=== PATIENT | female | born 1935 | race Two or more races ===

== ENCOUNTER 2024-10-15 13:42 | Outpatient (OUT) | payer MEDICARE, SELFPAY ==
[2024-10-15 14:13] LABS: Basophils Absolute Auto 0.1 10^3/uL (0.0-0.1); Eosinophils Absolute Auto 0.3 10^3/uL (0.0-0.7); Hemoglobin 14.3 g/dL (12.0-16.0); Immature Granulocytes Abs Auto 0.01 10^3/uL (0.00-0.03); Immature Granulocytes Pct Auto 0.1 % (0.0-0.5); Lymphocytes Absolute Auto 1.7 10^3/uL (1.2-3.8); Lymphocytes Percent Auto 24.2 % (20.5-60.0); Mean Corpuscular HGB Conc 34.9 g/dL (29.9-35.2); Mean Corpuscular Hemoglobin 29.9 pg (26.7-34.0); Mean Corpuscular Volume 85.8 fL (81.0-99.0); Mean Platelet Volume 11.7 fL (9.5-13.5); Monocytes Absolute Auto 0.5 10^3/uL (0.3-0.8); Monocytes Percent Auto 7.3 % (1.7-12.0); Neutrophils Absolute Auto 4.4 10^3/uL (1.4-6.5); Neutrophils Percent Auto 63.4 % (43.0-75.0); Platelet Count 281 10^3/uL (150-450); Red Blood Count 4.78 10^6/uL (4.20-5.40); Red Cell Distribution Width 14.4 % (11.0-15.0)
[2024-10-15 14:59] LABS: Alanine Aminotransferase 14 U/L (14-59); Albumin Globulin Ratio 0.8; Alkaline Phosphatase 95 U/L (46-116); Anion Gap 11.1; Aspartate Amino Transferase 12 U/L (15-37); BUN Creatinine Ratio 17.1; Bilirubin Total 0.9 mg/dL (0.2-1.0); Calcium 8.4 mg/dL (8.5-10.1); Carbon Dioxide 28.6 mmol/L (21.0-32.0); Chloride 107 mmol/L (98-107); Estimated GFR (African America 47 (>=60 mL/min/1.73m^2); Estimated GFR (Non-African Ame 39 (>=60 mL/min/1.73m^2); Globulin 3.7 g/dL; Glucose 98 mg/dL (74-106); Magnesium 1.3 mg/dL (1.8-2.4); Sodium 144 mmol/L (136-145); TSH W/ REFLEX FT4 1.589 uIU/mL (0.358-3.740); Total Protein 6.7 g/dL (6.4-8.2)
[2024-10-15 16:32] LABS: Potassium 2.7 mmol/L (3.5-5.1)
== END 2024-10-15 13:43 | disposition home or self-care (01) ==
LOC: LAB 13:50
PROVIDERS: PCP Student in an Organized Health Care Education/Training Program; Visit Provider Student in an Organized Health Care Education/Training Program
DX: I10 Essential (primary) hypertension (principal); E03.9 Hypothyroidism, unspecified; Z79.899 Other long term (current) drug therapy
CPT/HCPCS: 36415; 80053; 83735; 84443; 85025

== ENCOUNTER 2024-10-15 18:17 | Emergency (ER) | payer MEDICARE, SELFPAY ==
[2024-10-15] VITALS (23 sets, daily range): BP systolic 170–206; BP diastolic 83–107; PULSE 70–93; TEMP 36.6; O2SAT 97–99; BMI 28.8
--- NOTE | 2024-10-15 19:27 | ECG_ITS ---
[facility] Test Date: 2024-10-15 Pat Name: HENRIK PERKINS Department: Room: - Gender: Female [employer]: : [id number] Requested By: [id number] Order Number: [id number] Reading MD: JOSE PENA Measurements Intervals Yoder Rate: 70 P: -[id number] MD: -[id number] QRS: 90 QRSD: 164 T: 59 QT: 460 QTc: 480 Interpretive Statements [id number] Electronic ventricular pacemaker 9120 atypical ECG No previous ECG available for comparison Electronically Signed On 10-15-2024 20:53:10 EST by JOSE PENA
--- NOTE | 2024-10-15 19:31 | ED.GENADUL1 ---
HPI HPI - General Adult General Chief complaint: Recheck/Abnormal Lab/Rx Stated complaint: ABNORMAL LABS Time Seen by Provider: 10/15/24 19:09 Source: patient Mode of arrival: walk-in Limitations: no limitations History of Present Illness HPI narrative: 88-year-old female presents to the emergency department with daughter with complaint of low potassium levels. Patient recently moved here from [place], is getting established with a provider and routine blood work was performed. States she stopped taking potassium on Monday. Daughter states they have been having some trouble getting the prescription filled. She has had chronic diarrhea for which adjustments to her current medications attempting to adjust her current medications. She has had some fleeting, intermittent chest discomfort for a long while. She does have a pacemaker. Denies any fever, chills, nausea, vomiting, dysuria. Quality:?As above Severity:?Mild Timing:?As above Context: Normal setting and activity? Modifying factors:?None Associated symptoms: None Related Data Previous Rx's ?Medication ?Instructions ?Recorded potassium chloride 10 mEq 10 meq PO DAILY #30 tabs 10/15/24 tablet,extended release(part/cryst) Allergies Allergy/AdvReac Type Severity Reaction Status Date / Time rivaroxaban (From Xarelto) AdvReac Unknown Unknown Verified 10/15/24 19:27 Opioid HPI Opioid Management Most Recent Opioid Data: No Data to Display Review of Systems ROS Narrative CONST: Denies fever, chills HENT: Denies congestion, sore throat EYES: Denies eye redness, visual disturbance RESP: Denies cough, shortness of breath CV: + chest pain, palpitations (long standing) GI: + diarrhea. Denies abd pain, nausea, vomiting : Denies dysuria, flank pain MS: Denies back pain, myalgias SKIN: Denies color change, rash NEURO: Denies numbness, weakness PSYCHIATRIC: Denies confusion, agitation PFSH PFSH Social History Little interest or pleasure in doing things: not at all Feeling down, depressed, or hopeless: not at all Exam Narrative Exam Narrative: Vital signs reviewed Nurses notes noted CONST: Nontoxic, well appearing, well nourished, in no distress.? No diaphoresis.?? HENT: normocephalic, atraumatic, moist mucous membrane, no abnormalities of the nose noted, hearing normal EYES: normal appearing conjunctiva, no apparent discharge bilat NECK: normal appearance CV: normal rate, regular rhythm, no murmur RESP: normal effort, speaking in complete sentences. Lung sounds clear and equal bilat.? No wheezes, rales, rhonchi MS: no edema, tenderness SKIN: no pallor NEURO: A&Ox 3, no focal findings PSYCH: normal mood, affect Constitutional Vital Signs, click to edit/add: Last Vital Signs Temp 97.8 F 10/15/24 18:29 Pulse 70 10/15/24 21:10 Resp 13 10/15/24 21:10 BP 174/91 H 10/15/24 19:31 Pulse Ox 98 10/15/24 20:40 Course Vital Signs Vital signs: Vital Signs Temperature 97.8 F 10/15/24 18:29 Pulse Rate 70 10/15/24 18:29 Respiratory Rate 20 10/15/24 18:29 Blood Pressure 170/90 H 10/15/24 18:29 Pulse Oximetry 99 10/15/24 18:29 Temperature 97.8 F 10/15/24 18:29 Pulse Rate 70 10/15/24 21:10 Respiratory Rate 13 10/15/24 21:10 Blood Pressure 174/91 H 10/15/24 19:31 Pulse Oximetry 98 10/15/24 20:40 Medical Decision Making MDM Narrative Medical decision making narrative: This is a pleasant 88-year-old female who presents to the emergency department for evaluation of low potassium level On arrival, afebrile, vital signs are stable Exam, nontoxic, well-appearing patient in no distress. Heart regular rate and rhythm. Lung sounds clear and equal bilaterally. Abdomen soft. Nontender Labs reveal potassium 2.7. BUN and creatinine are little elevated at 25 and 1.44. No leukocytosis, anemia, thrombocytopenia. Favor hypokalemia Hypo-/hyper natremia less likely based on imaging History and Record Review Discussion with independent historian: Daughter Additional records reviewed: None available Additional Tests and Interventions IV Fluids: redistribution/electrolyte imbalance Disposition ? The patient was discharged. Prescriptions sent to pharmacy:[facility] Plan: Patient will be discharged to home.? Condition at time of disposition: stable improved.? Advised to follow up with primary provider. Advised to return for any worsening and/or development of new, concerning signs or symptoms Admission considered: K corrected in the ER PLEASE NOTE: Portions of the medical record may have been produced using electronic senior consumer insights consultant and may contain errors with respect to translation of words which may not have been identified prior to finalization of the chart. Lab Data Lab results reviewed: Yes I reviewed the patient's lab results Labs: Lab Results 10/15/24 Range/Units 19:54 WBC 7.9 (4.0-11.0) 10^3/uL RBC 4.96 (4.20-5.40) 10^6/uL Hgb 14.6 (12.0-16.0) g/dL Hct 43.5 (36.0-48.0) % MCV 87.7 (81.0-99.0) fL MCH 29.4 (26.7-34.0) pg MCHC 33.6 (29.9-35.2) g/dL RDW 14.7 (11.0-15.0) % Plt Count 282 (150-450) 10^3/uL MPV 11.6 (9.5-13.5) fL Neut % (Auto) 65.5 (43.0-75.0) % Lymph % (Auto) 22.0 (20.5-60.0) % [place] % (Auto) 8.4 (1.7-12.0) % Eos % (Auto) 3.0 (0.9-7.0) % Baso % (Auto) 1.0 (0.2-2.0) % Neut # (Auto) 5.2 (1.4-6.5) 10^3/uL Lymph # (Auto) 1.8 (1.2-3.8) 10^3/uL [place] # (Auto) 0.7 (0.3-0.8) 10^3/uL Eos # (Auto) 0.2 (0.0-0.7) 10^3/uL Baso # (Auto) 0.1 (0.0-0.1) 10^3/uL Abs Immat Gran (auto) 0.01 (0.00-0.03) 10^3/uL Imm/Tot Granulo (auto) 0.1 (0.0-0.5) % Sodium 143 (136-145) mmol/L Potassium 2.7 L* (3.5-5.1) mmol/L Chloride 105 (98-107) mmol/L Carbon Dioxide 28.4 (21.0-32.0) mmol/L Anion Gap 12.3 BUN 25.0 H (7.0-18.0) mg/dL Creatinine 1.44 H (0.55-1.02) mg/dL Est GFR ( Amer) 42 L (>=60 mL/min/1.73m^2) Est GFR (Non-Af Amer) 34 L (>=60 mL/min/1.73m^2) BUN/Creatinine Ratio 17.4 Glucose 101 (74-106) mg/dL Calcium 8.5 (8.5-10.1) mg/dL Magnesium 1.2 L (1.8-2.4) mg/dL Total Bilirubin 0.7 (0.2-1.0) mg/dL AST 14 L (15-37) U/L ALT 15 (14-59) U/L Alkaline Phosphatase 104 (46-116) U/L Troponin I High Sens 16.5 (4.0-51.3) pg/mL Total Protein 7.2 (6.4-8.2) g/dL Albumin 3.2 L (3.4-5.0) g/dL Globulin 4.0 g/dL Albumin/Globulin Ratio 0.8 Discharge Plan Discharge Chief Complaint: Recheck/Abnormal Lab/Rx Clinical Impression: Acute hypokalemia Hypertension Qualifiers: Hypertension type: unspecified Qualified Code(s): I10 - Essential (primary) hypertension Patient Disposition: Home, Self-Care Condition: Good Mode of Transportation: Private Vehicle Prescriptions / Home Meds: New potassium chloride 10 mEq tablet,ER particles/crystals 10 meq PO DAILY Qty: 30 0RF Print Language: Malawian Instructions: Hypokalemia (ED) Referrals: Ralph Bates DO [Primary Care Provider] - 1 week
[2024-10-15 19:59] LABS: Basophils Absolute Auto 0.1 10^3/uL (0.0-0.1); Eosinophils Absolute Auto 0.2 10^3/uL (0.0-0.7); Hematocrit 43.5 % (36.0-48.0); Hemoglobin 14.6 g/dL (12.0-16.0); Immature Granulocytes Abs Auto 0.01 10^3/uL (0.00-0.03); Immature Granulocytes Pct Auto 0.1 % (0.0-0.5); Lymphocytes Absolute Auto 1.8 10^3/uL (1.2-3.8); Mean Corpuscular HGB Conc 33.6 g/dL (29.9-35.2); Mean Corpuscular Hemoglobin 29.4 pg (26.7-34.0); Mean Corpuscular Volume 87.7 fL (81.0-99.0); Mean Platelet Volume 11.6 fL (9.5-13.5); Monocytes Absolute Auto 0.7 10^3/uL (0.3-0.8); Monocytes Percent Auto 8.4 % (1.7-12.0); Neutrophils Absolute Auto 5.2 10^3/uL (1.4-6.5); Neutrophils Percent Auto 65.5 % (43.0-75.0); Platelet Count 282 10^3/uL (150-450); Red Blood Count 4.96 10^6/uL (4.20-5.40); Red Cell Distribution Width 14.7 % (11.0-15.0); White Blood Count 7.9 10^3/uL (4.0-11.0)
[2024-10-15 20:25] LABS: Alanine Aminotransferase 15 U/L (14-59); Albumin Globulin Ratio 0.8; Albumin Level 3.2 g/dL (3.4-5.0); Alkaline Phosphatase 104 U/L (46-116); Anion Gap 12.3; Aspartate Amino Transferase 14 U/L (15-37); BUN Creatinine Ratio 17.4; Bilirubin Total 0.7 mg/dL (0.2-1.0); Calcium 8.5 mg/dL (8.5-10.1); Carbon Dioxide 28.4 mmol/L (21.0-32.0); Chloride 105 mmol/L (98-107); Estimated GFR (African America 42 (>=60 mL/min/1.73m^2); Estimated GFR (Non-African Ame 34 (>=60 mL/min/1.73m^2); Glucose 101 mg/dL (74-106); Magnesium 1.2 mg/dL (1.8-2.4); Sodium 143 mmol/L (136-145); Total Protein 7.2 g/dL (6.4-8.2); Troponin I High Sensitivity 16.5 pg/mL (4.0-51.3)
[2024-10-15 20:27] LABS: Potassium 2.7 mmol/L (3.5-5.1)
[2024-10-15] MEDS: POTASSIUM CHLORIDE IN WATER 10 MEQ/100 ML PREMIX 100 MEQ IV ×2 (20:41→22:27)
[2024-10-15] MEDS: POTASSIUM CHLORIDE 10 MEQ ER TABLET 40 MEQ PO (20:41)
[2024-10-15] MEDS: 0.9 % SODIUM CHLORIDE 500 ML 250 ML IV (21:30)
== END 2024-10-15 23:17 | disposition home or self-care (01) ==
PROVIDERS: Physician Assistant; Emergency Provider Emergency Medicine; PCP Student in an Organized Health Care Education/Training Program
DX: E87.6 Hypokalemia (principal); I50.21 Acute systolic (congestive) heart failure; I11.0 Hypertensive heart disease with heart failure; R07.89 Other chest pain; Z95.0 Presence of cardiac pacemaker; R19.7 Diarrhea, unspecified
CPT/HCPCS: 36415; 80053; 83735; 84443; 84484; 85025; 93005; 96365; 96376; 99285; J3480